=== PATIENT | male | born 1985 | race Caucasian/White ===

== ENCOUNTER 2023-04-16 12:55 | Emergency (ER) | payer OTHER ==
[~2023-04-16] VITALS: Ht 175.2 cm; Wt 83.9 kg
== END 2023-04-16 14:58 | disposition left against medical advice (07) ==
LOC: ED 12:55
DX: T74.21XA Adult sexual abuse, confirmed, initial encounter (principal); Z53.21 Procedure and treatment not carried out due to patient leaving prior to being seen by health care provider; Y04.2XXA Assault by strike against or bumped into by another person, initial encounter; Y93.89 Activity, other specified; Y92.89 Other specified places as the place of occurrence of the external cause; Y99.8 Other external cause status

== ENCOUNTER 2024-02-06 09:14 | Emergency (ER) | payer OTHER | END 2024-02-06 15:59 | disposition left against medical advice (07) | LOC: ED 09:14 | DX: R07.81 Pleurodynia (principal); Z53.29 Procedure and treatment not carried out because of patient's decision for other reasons ==

== ENCOUNTER 2024-04-04 10:30 | Emergency (ER) | payer OTHER ==
[~2024-04-04] VITALS: Ht 175.2 cm; Wt 81.6 kg
== END 2024-04-04 13:21 | disposition home or self-care (01) ==
LOC: ED 10:30
DX: S60.021A Contusion of right index finger without damage to nail, initial encounter (principal); W22.09XA Striking against other stationary object, initial encounter; Y93.89 Activity, other specified; Y92.89 Other specified places as the place of occurrence of the external cause; Y99.8 Other external cause status

== ENCOUNTER 2025-05-05 16:02 | Emergency (ER) | payer OTHER ==
[~2025-05-05] VITALS: Ht 175.2 cm; Wt 81.6 kg
[2025-05-05] MEDS ORDERED: SODIUM CHLORIDE 0.9% 1,000 ML IV ONE ×2 (16:20→17:25)
[2025-05-05] MEDS ORDERED: Ondansetron Hydrochloride 4 MG/2 ML VIAL IV ONE (16:20)
[2025-05-05 16:43] LABS: BASO # 0.1 10*3/uL (0.0-0.1); BASO % 0.4 % (0.0-1.0); EOS % 0.1 % (1.0-4.0); HEMATOCRIT 42.3 % (42.0-52.0); MEAN CELL VOLUME 83.1 fl (80.0-94.0); MEAN CORPUSCULAR HGB 28.5 pg (27.0-31.0); MEAN CORPUSCULAR HGB CONC 34.3 g/dl (33.0-37.0); MEAN PLATELET VOLUME 9.6 fl (9.6-12.3); MONO # 0.7 10*3/uL (0.1-1.0); MONO % 5.2 % (3.0-9.0); NEUT # 11.2 10*3/uL (2.3-7.9); NEUT % 80.6 % (47.0-73.0); PLATELET COUNT AUTOMATED 339 10*3/uL (130-400); RED BLOOD COUNT 5.09 10*6/uL (4.50-5.90); RED CELL DISTRI WIDTH 12.3 % (0-14.5); WHITE BLOOD COUNT 13.9 10*3/uL (4.8-10.8)
[2025-05-05 17:03] LABS: POTASSIUM 3.5 mmol/L (3.4-5.1)
== END 2025-05-05 18:50 | disposition home or self-care (01) ==
LOC: ED 16:02
PROVIDERS: Nurse Practitioner Family
DX: E86.0 Dehydration (principal); N17.9 Acute kidney failure, unspecified; R11.2 Nausea with vomiting, unspecified